=== PATIENT | male | born 1955 | race Caucasian/White ===

== ENCOUNTER 2020-12-30 | Emergency (ER) | payer OTHER ==
[~2020-12-30] MED LIST: BACTRIM DS1 TAB PO; LORTAB5 PO; NO
[2020-12-30] MEDS ORDERED: LORTAB 1010 MG PO (11:33)
== END 2020-12-30 11:55 | disposition home or self-care (01) | DRG 552 ==
DX: S22.080A Wedge compression fracture of T11-T12 vertebra, initial encounter for closed fracture (principal); F17.210 Nicotine dependence, cigarettes, uncomplicated; V89.2XXA Person injured in unspecified motor-vehicle accident, traffic, initial encounter